=== PATIENT | male | born 1985 | race Caucasian/White ===

== ENCOUNTER 2017-07-02 21:35 | Inpatient (IN) | payer MEDICARE, MEDICAID ==
[~2017-07-02] VITALS: Ht 170.2 cm; Wt 62.7 kg
[~2017-07-02 21:35] MED LIST: CHOL20004 PO; QUET100T PO; QUET50TA PO
[2017-07-02 22:12] LABS: BASOPHILS % (AUTO) 0.5 % (0.0-2.0); EOSINOPHILS % (AUTO) 1.9 % (1.0-6.0); HEMATOCRIT 44.6 % (41-53); HEMOGLOBIN 15.2 g/dL (13.5-17.5); LYMPHOCYTES # (AUTO) 3.2 K/uL (1.0-4.8); LYMPHOCYTES % (AUTO) 23.1 % (22.0-44.0); MEAN CORPUSCULAR HEMOGLOBIN 30.6 pg (26.0-34.0); MEAN CORPUSCULAR HGB CONC 34.1 G/dL (31.0-37.0); MEAN CORPUSCULAR VOLUME 90 fL (80-100); MONOCYTES # (AUTO) 0.9 K/uL (0.1-1.0); MONOCYTES % (AUTO) 6.7 % (2.0-9.0); NEUTROPHILS # (AUTO) 9.3 K/uL (1.8-7.7); NEUTROPHILS % (AUTO) 67.8 % (40.0-70.0); PLATELET COUNT (AUTO) 337 K/uL (150-450); RED BLOOD CELL COUNT(AUTO) 4.97 MIL/uL (4.50-5.90); RED CELL DISTRIBUTION WIDTH 12.9 % (11.5-14.5); WHITE BLOOD COUNT (AUTO) 13.7 K/uL (4.5-11.0)
[2017-07-02 22:22] LABS: ANION GAP 3 mmol/L (8-16); CARBON DIOXIDE 30 mmol/L (22-29); CHLORIDE 105 mmol/L (98-107); CREATININE 0.81 mg/dL (0.60-1.30); POTASSIUM 4.3 mmol/L (3.5-5.1); SODIUM SERUM 138 mmol/L (136-145); UREA NITROGEN, BLOOD 13 mg/dL (7-18)
[2017-07-02 22:23] LABS: CALCIUM, TOTAL 9.2 mg/dL (8.8-10.5); GLOMERULAR FILTR. RATE CALC > 60 mL/min (>60)
[2017-07-02 22:28] LABS: ALANINE AMINOTRANSFERASE 19 U/L (12-78); ALBUMIN 3.6 g/dL (3.4-5.0); ASPARTATE AMINOTRANSFERASE 14 U/L (15-37); BILIRUBIN,TOTAL 0.4 mg/dL (0.1-1.0)
[2017-07-02] MEDS ORDERED: LORazepam 2 MG TABLET PO ONE (22:30)
[2017-07-02] MEDS ORDERED: SULFAMETHOX/TRIMETH DS 800-160 MG/TABLET PO ONE (23:00)
[2017-07-02] MEDS ORDERED: HYDROCODONE/ACETAMINOPHEN 5-325 MG TABLET PO ONE (23:00)
[2017-07-02] MEDS ORDERED: LIDOCAINE HCL 1% 10 ML VIAL INJ ONE (23:00)
[2017-07-03 08:31] VITALS: BP 122/81
[2017-07-03] MEDS: FLUoxetine HCL 20 MG CAPSULE PO SCH (09:22)
[2017-07-03] MEDS: QUEtiapine FUMARATE 25 MG TABLET PO SCH (09:23)
[2017-07-03] MEDS ORDERED: MAG HYDROX/AL HYDROX/SIMETH ES 30 ML SUSPENSION UDCUP PO PRN (11:00)
[2017-07-03] MEDS ORDERED: MAGNESIUM HYDROXIDE SUSPENSION 30 ML UDCUP PO PRN (11:00)
[2017-07-03] MEDS ORDERED: BACITRACIN 28.4 GM OINTMENT TP PRN (11:00)
[2017-07-03] MEDS ORDERED: ONDANSETRON HCL 4 MG TABLET PO PRN (11:00)
[2017-07-03] MEDS ORDERED: ALBUTEROL SULFATE HFA 90 MCG/PUFF 8 GM INHALER IH PRN (11:00)
[2017-07-03] MEDS ORDERED: IBUPROFEN 600 MG TABLET PO PRN (11:00)
[2017-07-03] MEDS ORDERED: LOPERAMIDE HCL 2 MG CAPSULE PO PRN (11:00)
[2017-07-03] MEDS ORDERED: ACETAMINOPHEN 325 MG TABLET PO PRN (11:00)
[2017-07-03] MEDS ORDERED: PETROLATUM,WHITE 71 GM JELLY TP PRN (11:00)
[2017-07-03] MEDS ORDERED: CloNIDine HCL 0.1 MG TABLET PO PRN (11:00)
[2017-07-03] MEDS ORDERED: BENZOCAINE/MENTHOL LOZENGE [8 LOZENGES/PACKET] MM PRN (11:15)
[2017-07-03] MEDS: SULFAMETHOX/TRIMETH DS 800-160 MG/TABLET PO SCH (17:23)
[2017-07-03] MEDS: QUEtiapine FUMARATE 100 MG TABLET PO SCH (20:30)
[2017-07-04] MEDS: QUEtiapine FUMARATE 25 MG TABLET PO SCH (09:20)
[2017-07-04] MEDS: SULFAMETHOX/TRIMETH DS 800-160 MG/TABLET PO SCH ×2 (09:20→17:01)
[2017-07-04] MEDS: FLUoxetine HCL 20 MG CAPSULE PO SCH (09:20)
[2017-07-04] MEDS: CHOLECALCIFEROL (VIT D3) 1,000 UNITS TABLET PO SCH (09:20)
[2017-07-04] MEDS: NICOTINE 21 MG/24 HOUR PATCH TD SCH (09:22)
[2017-07-04 09:55] VITALS: BP 146/74
[2017-07-04 17:38] VITALS: BP 116/89
[2017-07-04] MEDS: QUEtiapine FUMARATE 100 MG TABLET PO SCH (20:45)
[2017-07-05] MEDS: MULTIVITAMINS WITH MINERALS, THERAPEUTIC TABLET PO SCH (09:26)
[2017-07-05] MEDS: FLUoxetine HCL 20 MG CAPSULE PO SCH (09:26)
[2017-07-05] MEDS: CHOLECALCIFEROL (VIT D3) 1,000 UNITS TABLET PO SCH (09:26)
[2017-07-05] MEDS: SULFAMETHOX/TRIMETH DS 800-160 MG/TABLET PO SCH ×2 (09:26→16:25)
[2017-07-05] MEDS: QUEtiapine FUMARATE 25 MG TABLET PO SCH (09:26)
[2017-07-05] MEDS: NICOTINE 21 MG/24 HOUR PATCH TD SCH (09:28)
[2017-07-05 09:48] VITALS: BP 101/65
[2017-07-05] MEDS: MUPIROCIN CALCIUM 2% 22 GM OINTMENT TP SCH (15:00)
[2017-07-05 16:24] VITALS: BP 119/70
[2017-07-05] MEDS: QUEtiapine FUMARATE 100 MG TABLET PO SCH (21:19)
[2017-07-06 02:52] VITALS: BP 129/65
[2017-07-06] MEDS: ZOLPIDEM TARTRATE 10 MG TABLET PO PRN (02:52)
[2017-07-06] MEDS: MUPIROCIN CALCIUM 2% 22 GM OINTMENT TP SCH (10:02)
[2017-07-06] MEDS: SULFAMETHOX/TRIMETH DS 800-160 MG/TABLET PO SCH ×2 (10:08→17:26)
[2017-07-06] MEDS: NICOTINE 21 MG/24 HOUR PATCH TD SCH (10:08)
[2017-07-06] MEDS: CHOLECALCIFEROL (VIT D3) 1,000 UNITS TABLET PO SCH (10:09)
[2017-07-06] MEDS: MULTIVITAMINS WITH MINERALS, THERAPEUTIC TABLET PO SCH (10:09)
[2017-07-06] MEDS: QUEtiapine FUMARATE 25 MG TABLET PO SCH (10:09)
[2017-07-06] MEDS: FLUoxetine HCL 20 MG CAPSULE PO SCH (10:09)
[2017-07-06] MEDS: LORazepam 2 MG TABLET PO PRN (10:11)
[2017-07-06] MEDS: QUEtiapine FUMARATE 100 MG TABLET PO PRN (10:11)
[2017-07-06 14:12] VITALS: BP 137/89
[2017-07-06 16:31] VITALS: BP 126/73
[2017-07-06] MEDS: QUEtiapine FUMARATE 100 MG TABLET PO SCH (20:21)
[2017-07-07 02:58] VITALS: BP 135/72
[2017-07-07 08:00] VITALS: BP 113/75
[2017-07-07] MEDS: QUEtiapine FUMARATE 25 MG TABLET PO SCH (08:12)
[2017-07-07] MEDS: CHOLECALCIFEROL (VIT D3) 1,000 UNITS TABLET PO SCH (08:12)
[2017-07-07] MEDS: FLUoxetine HCL 20 MG CAPSULE PO SCH (08:12)
[2017-07-07] MEDS: SULFAMETHOX/TRIMETH DS 800-160 MG/TABLET PO SCH ×2 (08:12→16:33)
[2017-07-07] MEDS: MUPIROCIN CALCIUM 2% 22 GM OINTMENT TP SCH (08:13)
[2017-07-07] MEDS: NICOTINE 21 MG/24 HOUR PATCH TD SCH (08:13)
[2017-07-07] MEDS: MULTIVITAMINS WITH MINERALS, THERAPEUTIC TABLET PO SCH (08:13)
[2017-07-07] MEDS: LORazepam 2 MG TABLET PO PRN (14:31)
[2017-07-07] MEDS: QUEtiapine FUMARATE 100 MG TABLET PO PRN (14:32)
[2017-07-07 20:09] VITALS: BP 119/81
[2017-07-07] MEDS: QUEtiapine FUMARATE 100 MG TABLET PO SCH (21:18)
[2017-07-08 08:00] VITALS: BP 130/77
[2017-07-08] MEDS: FLUoxetine HCL 20 MG CAPSULE PO SCH (08:13)
[2017-07-08] MEDS: SULFAMETHOX/TRIMETH DS 800-160 MG/TABLET PO SCH ×2 (08:13→16:20)
[2017-07-08] MEDS: QUEtiapine FUMARATE 25 MG TABLET PO SCH (08:13)
[2017-07-08] MEDS: CHOLECALCIFEROL (VIT D3) 1,000 UNITS TABLET PO SCH (08:13)
[2017-07-08] MEDS: MULTIVITAMINS WITH MINERALS, THERAPEUTIC TABLET PO SCH (08:13)
[2017-07-08] MEDS: MUPIROCIN CALCIUM 2% 22 GM OINTMENT TP SCH (08:14)
[2017-07-08] MEDS: NICOTINE 21 MG/24 HOUR PATCH TD SCH (08:14)
[2017-07-08 17:18] VITALS: BP 105/81
[2017-07-08] MEDS: QUEtiapine FUMARATE 100 MG TABLET PO SCH (21:19)
[2017-07-08] MEDS: ZOLPIDEM TARTRATE 10 MG TABLET PO PRN (22:45)
[2017-07-09 08:05] VITALS: BP 130/77
[2017-07-09] MEDS: QUEtiapine FUMARATE 25 MG TABLET PO SCH (08:29)
[2017-07-09] MEDS: MULTIVITAMINS WITH MINERALS, THERAPEUTIC TABLET PO SCH (08:29)
[2017-07-09] MEDS: SULFAMETHOX/TRIMETH DS 800-160 MG/TABLET PO SCH ×2 (08:29→16:29)
[2017-07-09] MEDS: FLUoxetine HCL 20 MG CAPSULE PO SCH (08:29)
[2017-07-09] MEDS: CHOLECALCIFEROL (VIT D3) 1,000 UNITS TABLET PO SCH (08:29)
[2017-07-09] MEDS: MUPIROCIN CALCIUM 2% 22 GM OINTMENT TP SCH (08:30)
[2017-07-09] MEDS: NICOTINE 21 MG/24 HOUR PATCH TD SCH (08:30)
[2017-07-09] MEDS ORDERED: FLUO-191 PO (16:55)
[2017-07-09] MEDS ORDERED: QUET25TA PO (16:55)
[2017-07-09] MEDS ORDERED: QUET100T PO (16:56)
[2017-07-09] MEDS ORDERED: VITAD1000 PO (17:01)
[2017-07-09] MEDS ORDERED: BACTDSB PO (17:01)
[2017-07-09] MEDS ORDERED: MULT-248 PO (17:05)
[2017-07-09] MEDS ORDERED: MUPI1OIN4 TP (17:07)
== END 2017-07-09 16:45 | disposition home or self-care (01) | DRG 885 ==
LOC: EMS 21:38 → 3EI 23:48
PROVIDERS: ADMIT Psychiatry & Neurology Child & Adolescent Psychiatry; ATTEND Psychiatry & Neurology Child & Adolescent Psychiatry
PROC: 0X950ZZ Drainage of Left Axilla, Open Approach (ICD-10-PCS; principal; 2017-07-02)
DX: F31.5 Bipolar disorder, current episode depressed, severe, with psychotic features (principal); R45.851 Suicidal ideations; L02.412 Cutaneous abscess of left axilla; D72.829 Elevated white blood cell count, unspecified; E55.9 Vitamin D deficiency, unspecified; F11.10 Opioid abuse, uncomplicated; F12.10 Cannabis abuse, uncomplicated; F15.10 Other stimulant abuse, uncomplicated; F17.210 Nicotine dependence, cigarettes, uncomplicated; Z71.51 Drug abuse counseling and surveillance of drug abuser; F41.9 Anxiety disorder, unspecified; G47.00 Insomnia, unspecified; Z59.0 Homelessness; Z79.899 Other long term (current) drug therapy; Z81.8 Family history of other mental and behavioral disorders; Z88.0 Allergy status to penicillin; Z88.8 Allergy status to other drugs, medicaments and biological substances; Z88.1 Allergy status to other antibiotic agents; Z71.6 Tobacco abuse counseling
CPT/HCPCS: 10060; 99285; 99406; G0480; J3490

== ENCOUNTER 2017-08-30 15:06 | Inpatient (IN) | payer MEDICARE, MEDICAID ==
[~2017-08-30] VITALS: Ht 170.2 cm; Wt 66.2 kg
[~2017-08-30 15:06] MED LIST changes: +BACTDSB PO; -CHOL20004 PO; +FLUO-191 PO; +MULT-248 PO; +MUPI1OIN4 TP; +QUET25TA PO; -QUET50TA PO; +VITAD1000 PO
[2017-08-30 17:00] VITALS: BP 113/60
[2017-08-30 17:44] VITALS: BP 110/73
[2017-08-30] MEDS ORDERED: ZOLPIDEM TARTRATE 10 MG TABLET PO PRN (17:45)
[2017-08-30] MEDS ORDERED: INFLUENZA VIRUS VACCINE QVS 2017-18 (3YR+)/PF 60 MCG/0.5 ML SYRINGE IM ONE (19:00)
[2017-08-31 01:33] VITALS: BP 118/64
[2017-08-31 08:24] VITALS: BP 100/61
[2017-08-31 08:32] LABS: BASOPHILS # (AUTO) 0.03 K/uL (0.00-0.20); BASOPHILS % (AUTO) 0.4 % (0.0-2.0); EOSINOPHILS # (AUTO) 0.16 K/uL (0.00-0.70); EOSINOPHILS % (AUTO) 1.69 % (1.0-6.0); HEMATOCRIT 48.4 % (41-53); HEMOGLOBIN 16.1 g/dL (13.5-17.5); LYMPHOCYTES # (AUTO) 1.7 K/uL (1.0-4.8); LYMPHOCYTES % (AUTO) 17.9 % (22.0-44.0); MEAN CORPUSCULAR HEMOGLOBIN 30.2 pg (26.0-34.0); MEAN CORPUSCULAR HGB CONC 33.2 G/dL (31.0-37.0); MEAN CORPUSCULAR VOLUME 91 fL (80-100); MONOCYTES # (AUTO) 0.4 K/uL (0.1-1.0); MONOCYTES % (AUTO) 4.1 % (2.0-9.0); NEUTROPHILS # (AUTO) 7.3 K/uL (1.8-7.7); NEUTROPHILS % (AUTO) 75.9 % (40.0-70.0); PLATELET COUNT (AUTO) 333 K/uL (150-450); RED BLOOD CELL COUNT(AUTO) 5.32 MIL/uL (4.50-5.90); RED CELL DISTRIBUTION WIDTH 13.3 % (11.5-14.5)
[2017-08-31 09:03] LABS: ALANINE AMINOTRANSFERASE 28 U/L (12-78); ALBUMIN 3.7 g/dL (3.4-5.0); ALKALINE PHOSPHATASE 49 U/L (46-116); ANION GAP 10 mmol/L (8-16); ASPARTATE AMINOTRANSFERASE 14 U/L (15-37); BILIRUBIN,TOTAL 0.5 mg/dL (0.1-1.0); CARBON DIOXIDE 28 mmol/L (22-29); CHLORIDE 103 mmol/L (98-107); CHOL/HDL RATIO 2.2 (4.2-7.3); CHOLESTEROL 143 mg/dL (131-200); CREATININE 0.84 mg/dL (0.60-1.30); FREE T4 (FREE THYROXINE) 1.12 ng/dL (0.76-1.46); GLOMERULAR FILTR. RATE CALC > 60 mL/min (>60); GLUCOSE,RANDOM 85 mg/dL (70-110); HDL CHOLESTEROL 66 mg/dL (40-60); LDL CHOL (CALC.) 65 mg/dL (0-130); POTASSIUM 4.6 mmol/L (3.5-5.1); SODIUM SERUM 141 mmol/L (136-145); THYROID STIMULATING HORMONE 0.21 uIU/mL (0.36-3.74); TOTAL PROTEIN, SERUM 7.5 g/dL (6.4-8.2); TRIGLYCERIDES 61 mg/dL (15-150); UREA NITROGEN, BLOOD 17 mg/dL (7-18)
[2017-08-31] MEDS ORDERED: MAG HYDROX/AL HYDROX/SIMETH ES 30 ML SUSPENSION UDCUP PO PRN (12:30)
[2017-08-31] MEDS ORDERED: IBUPROFEN 600 MG TABLET PO PRN (12:30)
[2017-08-31] MEDS ORDERED: ACETAMINOPHEN 325 MG TABLET PO PRN (12:30)
[2017-08-31] MEDS ORDERED: PETROLATUM,WHITE 71 GM JELLY TP PRN (12:30)
[2017-08-31] MEDS ORDERED: LOPERAMIDE HCL 2 MG CAPSULE PO PRN (12:30)
[2017-08-31] MEDS ORDERED: ALBUTEROL SULFATE HFA 90 MCG/PUFF 8 GM INHALER IH PRN (12:30)
[2017-08-31] MEDS ORDERED: MAGNESIUM HYDROXIDE SUSPENSION 30 ML UDCUP PO PRN (12:30)
[2017-08-31] MEDS ORDERED: BACITRACIN 28.4 GM OINTMENT TP PRN (12:30)
[2017-08-31] MEDS ORDERED: BENZOCAINE/MENTHOL LOZENGE MM PRN (12:30)
[2017-08-31] MEDS ORDERED: ONDANSETRON HCL 4 MG TABLET PO PRN (12:30)
[2017-08-31] MEDS ORDERED: CloNIDine HCL 0.1 MG TABLET PO PRN (12:30)
[2017-08-31] MEDS: NICOTINE 21 MG/24 HOUR PATCH TD SCH (12:53)
[2017-08-31 16:18] VITALS: BP 103/60
[2017-09-01 02:15] VITALS: BP 111/64
[2017-09-01] MEDS: NICOTINE 21 MG/24 HOUR PATCH TD SCH (08:55)
[2017-09-01 09:05] VITALS: BP 103/58
[2017-09-01 16:27] VITALS: BP 114/62
[2017-09-01] MEDS: QUEtiapine FUMARATE 100 MG TABLET PO SCH (20:39)
[2017-09-02 05:03] VITALS: BP 113/73
[2017-09-02 08:00] VITALS: BP 104/65
[2017-09-02] MEDS: NICOTINE 21 MG/24 HOUR PATCH TD SCH (08:38)
[2017-09-02 16:24] VITALS: BP 110/68
[2017-09-02] MEDS: QUEtiapine FUMARATE 100 MG TABLET PO SCH (20:30)
[2017-09-03 06:58] VITALS: BP 101/61
[2017-09-03] MEDS: NICOTINE 21 MG/24 HOUR PATCH TD SCH (08:41)
[2017-09-03 08:47] VITALS: BP 105/62
[2017-09-03 16:07] VITALS: BP 127/83
[2017-09-03 16:45] LABS: HIV 1-2 SCREEN 4TH GEN W/RFLX Non Reactive (Non Reactive)
[2017-09-03] MEDS: LORazepam 2 MG TABLET PO PRN (18:10)
[2017-09-03] MEDS: QUEtiapine FUMARATE 100 MG TABLET PO SCH (20:38)
[2017-09-04 06:49] VITALS: BP 101/78
[2017-09-04 08:24] VITALS: BP 105/60
[2017-09-04] MEDS: NICOTINE 21 MG/24 HOUR PATCH TD SCH (08:53)
[2017-09-04] MEDS: LORazepam 2 MG TABLET PO PRN ×2 (11:49→16:02)
[2017-09-04 16:00] VITALS: BP 107/79
[2017-09-04] MEDS: QUEtiapine FUMARATE 100 MG TABLET PO SCH (20:05)
[2017-09-05 01:51] VITALS: BP 101/60
[2017-09-05 08:39] VITALS: BP 118/59
[2017-09-05 09:00] VITALS: BP 121/67
[2017-09-05] MEDS: NICOTINE 21 MG/24 HOUR PATCH TD SCH (09:01)
[2017-09-05] MEDS: LORazepam 2 MG TABLET PO PRN ×3 (09:01→18:46)
[2017-09-05 16:15] VITALS: BP 129/67
[2017-09-05] MEDS: QUEtiapine FUMARATE 100 MG TABLET PO PRN (18:46)
[2017-09-05] MEDS: QUEtiapine FUMARATE 100 MG TABLET PO SCH (21:08)
[2017-09-06] VITALS: BP 120/73
[2017-09-06] MEDS: LORazepam 2 MG TABLET PO PRN ×3 (05:44→15:39)
[2017-09-06] MEDS: NICOTINE 21 MG/24 HOUR PATCH TD SCH ×2 (08:18→10:42)
[2017-09-06 10:15] VITALS: BP 114/72
[2017-09-06 16:30] VITALS: BP 121/69
[2017-09-06] MEDS: QUEtiapine FUMARATE 100 MG TABLET PO PRN (17:53)
[2017-09-06] MEDS ORDERED: QUEtiapine FUMARATE 100 MG TABLET PO SCH (21:00)
[2017-09-07 00:25] VITALS: BP 111/68
[2017-09-07 08:29] VITALS: BP 113/73
[2017-09-07] MEDS: NICOTINE 21 MG/24 HOUR PATCH TD SCH (09:00)
== END 2017-09-07 13:25 | disposition home or self-care (01) | DRG 885 ==
LOC: B2X 18:20
PROVIDERS: ADMIT Psychiatry & Neurology Child & Adolescent Psychiatry; ATTEND Psychiatry & Neurology Child & Adolescent Psychiatry
PROC: 3E0234Z Introduction of Serum, Toxoid and Vaccine into Muscle, Percutaneous Approach (ICD-10-PCS; principal; 2017-08-31)
DX: F25.0 Schizoaffective disorder, bipolar type (principal); R45.851 Suicidal ideations; Z59.0 Homelessness; F12.10 Cannabis abuse, uncomplicated; F15.10 Other stimulant abuse, uncomplicated; F17.200 Nicotine dependence, unspecified, uncomplicated; G47.00 Insomnia, unspecified; Z81.8 Family history of other mental and behavioral disorders; Z88.0 Allergy status to penicillin; Z88.8 Allergy status to other drugs, medicaments and biological substances; Z23 Encounter for immunization
CPT/HCPCS: 80074; 84439; 84443; 87389; 90471

== ENCOUNTER 2018-04-01 09:37 | Inpatient (IN) | payer MEDICARE, MEDICAID ==
[~2018-04-01] VITALS: Ht 167.6 cm; Wt 68.0 kg
[~2018-04-01 09:37] MED LIST changes: -BACTDSB PO; -FLUO-191 PO; -MULT-248 PO; -MUPI1OIN4 TP; -QUET25TA PO; -VITAD1000 PO
[2018-04-01] MEDS ORDERED: HALOPERIDOL 5 MG TABLET PO PRN (11:30)
[2018-04-01] MEDS ORDERED: ZOLPIDEM TARTRATE 10 MG TABLET PO PRN (11:30)
[2018-04-01 11:33] VITALS: BP 104/59
[2018-04-01] MEDS ORDERED: OXCA300T PO (11:46)
[2018-04-01] MEDS ORDERED: QUET300T2 PO (11:46)
[2018-04-01] MEDS ORDERED: LOPERAMIDE HCL 2 MG CAPSULE PO PRN (12:45)
[2018-04-01] MEDS ORDERED: MAGNESIUM HYDROXIDE SUSPENSION 30 ML UDCUP PO PRN (12:45)
[2018-04-01] MEDS ORDERED: CloNIDine HCL 0.1 MG TABLET PO PRN (12:45)
[2018-04-01] MEDS ORDERED: DOCUSATE SODIUM 100 MG CAPSULE PO PRN (12:45)
[2018-04-01] MEDS ORDERED: ALBUTEROL SULFATE HFA 90 MCG/PUFF 8 GM INHALER IH PRN (12:45)
[2018-04-01] MEDS ORDERED: IBUPROFEN 400 MG TABLET PO PRN (12:45)
[2018-04-01] MEDS ORDERED: MAG HYDROX/AL HYDROX/SIMETH ES 30 ML SUSPENSION UDCUP PO PRN (12:45)
[2018-04-01] MEDS ORDERED: GuaiFENesin/D-METHORPHAN [SUGAR-FREE] 200-20MG/10 ML SYRUP UDCUP PO PRN (12:45)
[2018-04-01] MEDS ORDERED: PETROLATUM,WHITE 71 GM JELLY TP PRN (12:45)
[2018-04-01] MEDS ORDERED: ONDANSETRON HCL 4 MG TABLET PO PRN (12:45)
[2018-04-01] MEDS ORDERED: NICOTINE 14 MG/24 HOUR PATCH TD PRN (12:45)
[2018-04-01] MEDS ORDERED: ACETAMINOPHEN 325 MG TABLET PO PRN (12:45)
[2018-04-01 16:13] VITALS: BP 105/65
[2018-04-01 16:15] VITALS: BP 105/65
[2018-04-01] MEDS: LORazepam 2 MG TABLET PO PRN (23:07)
[2018-04-02 06:25] VITALS: BP 108/76
[2018-04-02 07:52] LABS: BASOPHILS % (AUTO) 0.4 % (0.0-2.0); EOSINOPHILS % (AUTO) 6.4 % (1.0-6.0); HEMATOCRIT 46.4 % (41-53); HEMOGLOBIN 16.1 g/dL (13.5-17.5); LYMPHOCYTES # (AUTO) 2.3 K/uL (1.0-4.8); LYMPHOCYTES % (AUTO) 29.4 % (22.0-44.0); MEAN CORPUSCULAR HEMOGLOBIN 31.3 pg (26.0-34.0); MEAN CORPUSCULAR HGB CONC 34.7 G/dL (31.0-37.0); MEAN CORPUSCULAR VOLUME 90 fL (80-100); MONOCYTES # (AUTO) 0.5 K/uL (0.1-1.0); MONOCYTES % (AUTO) 6.9 % (2.0-9.0); NEUTROPHILS # (AUTO) 4.4 K/uL (1.8-7.7); NEUTROPHILS % (AUTO) 56.9 % (40.0-70.0); PLATELET COUNT (AUTO) 314 K/uL (150-450); RED BLOOD CELL COUNT(AUTO) 5.14 MIL/uL (4.50-5.90); RED CELL DISTRIBUTION WIDTH 13.7 % (11.5-14.5)
[2018-04-02 08:14] LABS: HEMOGLOBIN A1C 5.2 % (4.5-6.2)
[2018-04-02 08:41] VITALS: BP 118/61
[2018-04-02 08:45] LABS: ALANINE AMINOTRANSFERASE 25 U/L (12-78); ALBUMIN 3.5 g/dL (3.4-5.0); ALKALINE PHOSPHATASE 46 U/L (46-116); ANION GAP 7 mmol/L (8-16); ASPARTATE AMINOTRANSFERASE 15 U/L (15-37); BILIRUBIN,TOTAL 0.7 mg/dL (0.1-1.0); CALCIUM, TOTAL 8.6 mg/dL (8.8-10.5); CARBON DIOXIDE 26 mmol/L (22-29); CHLORIDE 105 mmol/L (98-107); CHOL/HDL RATIO 2.8 (4.2-7.3); CHOLESTEROL 135 mg/dL (131-200); FREE T4 (FREE THYROXINE) 0.95 ng/dL (0.76-1.46); GLOMERULAR FILTR. RATE CALC > 60 mL/min (>60); GLUCOSE,RANDOM 78 mg/dL (70-110); HDL CHOLESTEROL 49 mg/dL (40-60); LDL CHOL (CALC.) 74 mg/dL (0-130); POTASSIUM 4.7 mmol/L (3.5-5.1); SODIUM SERUM 138 mmol/L (136-145); THYROID STIMULATING HORMONE 1.01 uIU/mL (0.36-3.74); TOTAL PROTEIN, SERUM 6.4 g/dL (6.4-8.2); TRIGLYCERIDES 61 mg/dL (15-150); UREA NITROGEN, BLOOD 12 mg/dL (7-18)
[2018-04-02] MEDS: NICOTINE 14 MG/24 HOUR PATCH TD SCH (09:33)
[2018-04-02 16:12] VITALS: BP 112/66
[2018-04-02] MEDS: LORazepam 2 MG TABLET PO PRN (16:27)
[2018-04-02] MEDS: NYSTATIN 15 GM POWDER BOTTLE TP SCH (16:28)
[2018-04-02] MEDS: QUEtiapine FUMARATE 300 MG TABLET PO SCH (20:05)
[2018-04-03 01:57] VITALS: BP 120/80
[2018-04-03 08:22] VITALS: BP 105/66
[2018-04-03] MEDS: NYSTATIN 15 GM POWDER BOTTLE TP SCH ×2 (09:59→16:39)
[2018-04-03] MEDS: NICOTINE 14 MG/24 HOUR PATCH TD SCH (09:59)
[2018-04-03] MEDS: LORazepam 2 MG TABLET PO PRN ×3 (12:38→21:19)
[2018-04-03 18:07] VITALS: BP 106/62
[2018-04-03] MEDS: QUEtiapine FUMARATE 300 MG TABLET PO SCH (21:12)
[2018-04-03] MEDS: CHOLECALCIFEROL (VIT D3) 400 UNITS TABLET PO SCH (21:12)
[2018-04-04 00:45] VITALS: BP 118/60
[2018-04-04] MEDS: LORazepam 2 MG TABLET PO PRN ×4 (01:17→20:12)
[2018-04-04 08:27] VITALS: BP 104/60
[2018-04-04] MEDS: CHOLECALCIFEROL (VIT D3) 400 UNITS TABLET PO SCH ×2 (08:31→16:02)
[2018-04-04] MEDS: NICOTINE 14 MG/24 HOUR PATCH TD SCH (08:31)
[2018-04-04] MEDS: NYSTATIN 15 GM POWDER BOTTLE TP SCH ×2 (08:32→16:02)
[2018-04-04 11:55] VITALS: BP 110/64
[2018-04-04 16:12] VITALS: BP 118/74
[2018-04-04] MEDS: QUEtiapine FUMARATE 300 MG TABLET PO SCH (20:12)
[2018-04-05 04:03] VITALS: BP 105/65
[2018-04-05 08:49] VITALS: BP 112/60
[2018-04-05] MEDS: NICOTINE 14 MG/24 HOUR PATCH TD SCH (09:00)
[2018-04-05] MEDS: CHOLECALCIFEROL (VIT D3) 400 UNITS TABLET PO SCH ×2 (09:12→16:06)
[2018-04-05] MEDS: NYSTATIN 15 GM POWDER BOTTLE TP SCH ×2 (09:13→16:06)
[2018-04-05] MEDS: LORazepam 2 MG TABLET PO PRN ×4 (10:51→23:56)
[2018-04-05 16:17] VITALS: BP 115/68
[2018-04-05] MEDS: QUEtiapine FUMARATE 300 MG TABLET PO SCH (20:16)
[2018-04-06 02:40] VITALS: BP 111/72
[2018-04-06 08:30] VITALS: BP 103/67
[2018-04-06] MEDS: CHOLECALCIFEROL (VIT D3) 400 UNITS TABLET PO SCH ×2 (08:49→16:36)
[2018-04-06] MEDS: NICOTINE 14 MG/24 HOUR PATCH TD SCH (08:50)
[2018-04-06] MEDS: NYSTATIN 15 GM POWDER BOTTLE TP SCH ×2 (08:50→16:40)
[2018-04-06] MEDS ORDERED: QUET300T18 PO (12:16)
[2018-04-06] MEDS ORDERED: VITAD400 PO (12:42)
[2018-04-06] MEDS ORDERED: NYST15PO3 TP (12:42)
== END 2018-04-06 17:00 | disposition home or self-care (01) | DRG 885 ==
LOC: B2S 11:22
DX: F31.4 Bipolar disorder, current episode depressed, severe, without psychotic features (principal); R45.851 Suicidal ideations; E55.9 Vitamin D deficiency, unspecified; F12.10 Cannabis abuse, uncomplicated; F15.10 Other stimulant abuse, uncomplicated; F17.200 Nicotine dependence, unspecified, uncomplicated; F41.9 Anxiety disorder, unspecified; G47.00 Insomnia, unspecified; F60.2 Antisocial personality disorder; Z59.0 Homelessness; Z81.8 Family history of other mental and behavioral disorders; Z71.6 Tobacco abuse counseling; Z71.51 Drug abuse counseling and surveillance of drug abuser; Z91.5 Personal history of self-harm; Z88.0 Allergy status to penicillin; Z88.8 Allergy status to other drugs, medicaments and biological substances; Z91.14 Patient's other noncompliance with medication regimen
CPT/HCPCS: 82306; 83036; 84439; 84443

== ENCOUNTER 2018-06-11 00:50 | Inpatient (IN) | payer MEDICARE, MEDICAID ==
[~2018-06-11] VITALS: Ht 167.6 cm; Wt 67.6 kg
[~2018-06-11 00:50] MED LIST changes: +NYST15PO3 TP; -QUET100T PO; +QUET300T18 PO; +QUET300T2 PO; +VITAD400 PO
[2018-06-11 06:12] VITALS: BP 105/73
[2018-06-11] MEDS ORDERED: DOCUSATE SODIUM 100 MG CAPSULE PO PRN (06:30)
[2018-06-11] MEDS ORDERED: ONDANSETRON HCL 4 MG TABLET PO PRN (06:30)
[2018-06-11] MEDS ORDERED: IBUPROFEN 400 MG TABLET PO PRN (06:30)
[2018-06-11] MEDS ORDERED: MAGNESIUM HYDROXIDE SUSPENSION 30 ML UDCUP PO PRN (06:30)
[2018-06-11] MEDS ORDERED: ALBUTEROL SULFATE HFA 90 MCG/PUFF 8 GM INHALER IH PRN (06:30)
[2018-06-11] MEDS ORDERED: CloNIDine HCL 0.1 MG TABLET PO PRN (06:30)
[2018-06-11] MEDS ORDERED: ACETAMINOPHEN 325 MG TABLET PO PRN (06:30)
[2018-06-11] MEDS ORDERED: GuaiFENesin/D-METHORPHAN [SUGAR-FREE] 200-20MG/10 ML SYRUP UDCUP PO PRN (06:30)
[2018-06-11] MEDS ORDERED: PETROLATUM,WHITE 71 GM JELLY TP PRN (06:30)
[2018-06-11] MEDS ORDERED: MAG HYDROX/AL HYDROX/SIMETH ES 30 ML SUSPENSION UDCUP PO PRN (06:30)
[2018-06-11] MEDS ORDERED: NICOTINE 14 MG/24 HOUR PATCH TD PRN (06:30)
[2018-06-11] MEDS ORDERED: LOPERAMIDE HCL 2 MG CAPSULE PO PRN (06:30)
[2018-06-11] MEDS: LORazepam 2 MG TABLET PO PRN (07:15)
[2018-06-11 07:36] LABS: AMPHET/METH SCREEN,URINE NEGATIVE (NEGATIVE); BARBITURATE SCREEN, URINE NEGATIVE (NEGATIVE); BENZODIAZEPINES SCREEN,URINE NEGATIVE (NEGATIVE); CANNABINOID SCREEN,URINE POSITIVE (NEGATIVE); COCAINE SCREEN,URINE NEGATIVE (NEGATIVE); METHADONE SCREEN, URINE NEGATIVE (NEGATIVE); OPIATE SCREEN,URINE NEGATIVE (NEGATIVE); PHENCYCLIDINE SCREEN,URINE NEGATIVE (NEGATIVE)
[2018-06-11 08:21] VITALS: BP 122/73
[2018-06-11 08:29] LABS: APPEARANCE,URINE CLEAR (CLEAR); BILIRUBIN,URINE NEGATIVE (NEGATIVE); GLUCOSE, URINE (UA) NEGATIVE (NEGATIVE); KETONES,URINE NEGATIVE (NEGATIVE); LEUKOCYTE ESTERASE ,URINE NEGATIVE (NEGATIVE); NITRATE,URINE NEGATIVE (NEGATIVE); OCCULT BLOOD,URINE NEGATIVE (NEGATIVE); PH,URINE 6.5 (5.0-8.0); PROTEIN,URINE NEGATIVE (NEGATIVE); UROBILINOGEN,URINE 0.2 mg/dL (<=1.0)
[2018-06-11] MEDS: QUEtiapine FUMARATE 100 MG TABLET PO SCH (12:40)
[2018-06-11 16:05] VITALS: BP 127/79
[2018-06-11] MEDS: QUEtiapine FUMARATE 200 MG TABLET PO SCH (20:05)
[2018-06-12] VITALS: BP 122/84
[2018-06-12 01:52] VITALS: BP 108/73
[2018-06-12] MEDS: LORazepam 2 MG TABLET PO PRN ×2 (01:53→20:33)
[2018-06-12] MEDS ORDERED: QUET300T2 PO (05:23)
[2018-06-12] MEDS ORDERED: OXCA300T29 PO (05:23)
[2018-06-12 07:12] LABS: BASOPHILS % (AUTO) 0.5 % (0.0-2.0); EOSINOPHILS % (AUTO) 2.1 % (1.0-6.0); HEMATOCRIT 43.9 % (41-53); HEMOGLOBIN 15.4 g/dL (13.5-17.5); LYMPHOCYTES # (AUTO) 2.6 K/uL (1.0-4.8); LYMPHOCYTES % (AUTO) 38.1 % (22.0-44.0); MEAN CORPUSCULAR HEMOGLOBIN 31.8 pg (26.0-34.0); MEAN CORPUSCULAR VOLUME 91 fL (80-100); MONOCYTES # (AUTO) 0.6 K/uL (0.1-1.0); MONOCYTES % (AUTO) 8.8 % (2.0-9.0); NEUTROPHILS # (AUTO) 3.4 K/uL (1.8-7.7); NEUTROPHILS % (AUTO) 50.5 % (40.0-70.0); PLATELET COUNT (AUTO) 304 K/uL (150-450); RED BLOOD CELL COUNT(AUTO) 4.84 MIL/uL (4.50-5.90)
[2018-06-12 07:39] LABS: ALANINE AMINOTRANSFERASE 32 U/L (12-78); ALBUMIN 3.2 g/dL (3.4-5.0); ALKALINE PHOSPHATASE 46 U/L (46-116); ANION GAP 5 mmol/L (8-16); ASPARTATE AMINOTRANSFERASE 13 U/L (15-37); BILIRUBIN,TOTAL 0.3 mg/dL (0.1-1.0); CALCIUM, TOTAL 8.8 mg/dL (8.8-10.5); CARBON DIOXIDE 30 mmol/L (22-29); CHLORIDE 101 mmol/L (98-107); CHOL/HDL RATIO 2.8 (4.2-7.3); CHOLESTEROL 137 mg/dL (131-200); CREATININE 0.89 mg/dL (0.60-1.30); GLOMERULAR FILTR. RATE CALC > 60 mL/min (>60); GLUCOSE,RANDOM 89 mg/dL (70-110); HDL CHOLESTEROL 49 mg/dL (40-60); LDL CHOL (CALC.) 67 mg/dL (0-130); POTASSIUM 4.7 mmol/L (3.5-5.1); SODIUM SERUM 136 mmol/L (136-145); THYROID STIMULATING HORMONE 1.61 uIU/mL (0.36-3.74); TOTAL PROTEIN, SERUM 6.3 g/dL (6.4-8.2); TRIGLYCERIDES 103 mg/dL (15-150); UREA NITROGEN, BLOOD 17 mg/dL (7-18)
[2018-06-12] MEDS: QUEtiapine FUMARATE 100 MG TABLET PO SCH (08:02)
[2018-06-12 08:16] VITALS: BP 108/68
[2018-06-12 16:15] VITALS: BP 120/87
[2018-06-12] MEDS: QUEtiapine FUMARATE 200 MG TABLET PO SCH (20:20)
[2018-06-13 00:04] VITALS: BP 110/68
[2018-06-13] MEDS: QUEtiapine FUMARATE 100 MG TABLET PO PRN (00:19)
[2018-06-13] MEDS: QUEtiapine FUMARATE 100 MG TABLET PO SCH (08:10)
[2018-06-13 08:12] VITALS: BP 126/70
[2018-06-13 16:06] VITALS: BP 122/73
[2018-06-13] MEDS: LORazepam 2 MG TABLET PO PRN (16:15)
[2018-06-13] MEDS: QUEtiapine FUMARATE 200 MG TABLET PO SCH (20:32)
[2018-06-14 00:01] VITALS: BP 110/68
[2018-06-14] MEDS: ZOLPIDEM TARTRATE 10 MG TABLET PO PRN (00:04)
[2018-06-14 08:08] VITALS: BP 112/74
[2018-06-14] MEDS: MULTIVITAMINS WITH MINERALS, THERAPEUTIC TABLET PO SCH (08:50)
[2018-06-14] MEDS: QUEtiapine FUMARATE 100 MG TABLET PO SCH (08:50)
[2018-06-14 16:12] VITALS: BP 127/62
[2018-06-14] MEDS: LORazepam 2 MG TABLET PO PRN (16:30)
[2018-06-14] MEDS: QUEtiapine FUMARATE 200 MG TABLET PO SCH (20:36)
[2018-06-15 00:52] VITALS: BP 105/79
[2018-06-15 08:12] VITALS: BP 109/83
[2018-06-15] MEDS: QUEtiapine FUMARATE 100 MG TABLET PO SCH (08:21)
[2018-06-15] MEDS: CHOLECALCIFEROL (VIT D3) 1,000 UNITS TABLET PO SCH (08:21)
[2018-06-15] MEDS: MULTIVITAMINS WITH MINERALS, THERAPEUTIC TABLET PO SCH (08:21)
[2018-06-15] MEDS: LORazepam 2 MG TABLET PO PRN (12:38)
[2018-06-15 17:27] VITALS: BP 106/76
[2018-06-15] MEDS: QUEtiapine FUMARATE 200 MG TABLET PO SCH (20:37)
[2018-06-16 00:04] VITALS: BP 134/81
[2018-06-16] MEDS: LORazepam 2 MG TABLET PO PRN ×2 (00:09→17:26)
[2018-06-16] MEDS: ZOLPIDEM TARTRATE 10 MG TABLET PO PRN (00:09)
[2018-06-16 08:13] VITALS: BP 113/68
[2018-06-16] MEDS: MULTIVITAMINS WITH MINERALS, THERAPEUTIC TABLET PO SCH (08:49)
[2018-06-16] MEDS: QUEtiapine FUMARATE 100 MG TABLET PO SCH (08:49)
[2018-06-16] MEDS: CHOLECALCIFEROL (VIT D3) 1,000 UNITS TABLET PO SCH (08:49)
[2018-06-16] MEDS: BuPROPion HCL 100 MG SR TABLET PO SCH (13:06)
[2018-06-16 16:09] VITALS: BP 117/75
[2018-06-16] MEDS: QUEtiapine FUMARATE 200 MG TABLET PO SCH (20:04)
[2018-06-17] MEDS: ZOLPIDEM TARTRATE 10 MG TABLET PO PRN ×2 (00:10→20:42)
[2018-06-17 02:45] VITALS: BP 106/63
[2018-06-17] MEDS: LORazepam 2 MG TABLET PO PRN ×3 (03:49→16:20)
[2018-06-17 08:31] VITALS: BP 113/62
[2018-06-17] MEDS: BuPROPion HCL 100 MG SR TABLET PO SCH (08:32)
[2018-06-17] MEDS: QUEtiapine FUMARATE 100 MG TABLET PO SCH (08:32)
[2018-06-17] MEDS: MULTIVITAMINS WITH MINERALS, THERAPEUTIC TABLET PO SCH (08:32)
[2018-06-17] MEDS: CHOLECALCIFEROL (VIT D3) 1,000 UNITS TABLET PO SCH (08:32)
[2018-06-17 16:06] VITALS: BP 124/80
[2018-06-17] MEDS: QUEtiapine FUMARATE 200 MG TABLET PO SCH (20:22)
[2018-06-18 00:34] VITALS: BP 114/77
[2018-06-18 08:32] VITALS: BP 116/67
[2018-06-18] MEDS: BuPROPion HCL 100 MG SR TABLET PO SCH (08:46)
[2018-06-18] MEDS: CHOLECALCIFEROL (VIT D3) 1,000 UNITS TABLET PO SCH (08:47)
[2018-06-18] MEDS: MULTIVITAMINS WITH MINERALS, THERAPEUTIC TABLET PO SCH (08:47)
[2018-06-18] MEDS: QUEtiapine FUMARATE 100 MG TABLET PO SCH (08:47)
[2018-06-18] MEDS: LORazepam 2 MG TABLET PO PRN ×3 (10:30→20:13)
[2018-06-18 16:07] VITALS: BP 109/60
[2018-06-18] MEDS: QUEtiapine FUMARATE 200 MG TABLET PO SCH (20:13)
[2018-06-19 00:28] VITALS: BP 100/62
[2018-06-19 04:40] VITALS: BP 110/82
[2018-06-19] MEDS: LORazepam 2 MG TABLET PO PRN ×2 (04:43→15:41)
[2018-06-19 08:05] VITALS: BP 105/67
[2018-06-19] MEDS: MULTIVITAMINS WITH MINERALS, THERAPEUTIC TABLET PO SCH (08:31)
[2018-06-19] MEDS: QUEtiapine FUMARATE 100 MG TABLET PO SCH (08:31)
[2018-06-19] MEDS: CHOLECALCIFEROL (VIT D3) 1,000 UNITS TABLET PO SCH (08:31)
[2018-06-19] MEDS: BuPROPion HCL 100 MG SR TABLET PO SCH (08:31)
[2018-06-19 16:03] VITALS: BP 133/79
[2018-06-19] MEDS: QUEtiapine FUMARATE 200 MG TABLET PO SCH (20:07)
[2018-06-19] MEDS: ZOLPIDEM TARTRATE 10 MG TABLET PO PRN (21:15)
[2018-06-20 00:20] VITALS: BP 110/68
[2018-06-20] MEDS: LORazepam 2 MG TABLET PO PRN ×3 (00:21→20:11)
[2018-06-20] MEDS: CHOLECALCIFEROL (VIT D3) 1,000 UNITS TABLET PO SCH (08:26)
[2018-06-20] MEDS: BuPROPion HCL 100 MG SR TABLET PO SCH (08:26)
[2018-06-20] MEDS: QUEtiapine FUMARATE 100 MG TABLET PO SCH (08:26)
[2018-06-20] MEDS: MULTIVITAMINS WITH MINERALS, THERAPEUTIC TABLET PO SCH (08:26)
[2018-06-20 08:46] VITALS: BP 103/73
[2018-06-20 16:33] VITALS: BP 123/68
[2018-06-20] MEDS: QUEtiapine FUMARATE 200 MG TABLET PO SCH (20:01)
[2018-06-21 01:33] VITALS: BP 121/73
[2018-06-21] MEDS: BuPROPion HCL 100 MG SR TABLET PO SCH (08:07)
[2018-06-21] MEDS: CHOLECALCIFEROL (VIT D3) 1,000 UNITS TABLET PO SCH (08:07)
[2018-06-21] MEDS: MULTIVITAMINS WITH MINERALS, THERAPEUTIC TABLET PO SCH (08:07)
[2018-06-21] MEDS: QUEtiapine FUMARATE 100 MG TABLET PO SCH (08:07)
[2018-06-21 08:23] VITALS: BP 124/60
[2018-06-21] MEDS: LORazepam 2 MG TABLET PO PRN ×2 (10:06→16:45)
[2018-06-21 16:09] VITALS: BP 108/86
[2018-06-21] MEDS: QUEtiapine FUMARATE 100 MG TABLET PO PRN (16:45)
[2018-06-21] MEDS: QUEtiapine FUMARATE 200 MG TABLET PO SCH (20:16)
[2018-06-22 02:42] VITALS: BP 123/75
[2018-06-22] MEDS: LORazepam 2 MG TABLET PO PRN ×3 (02:42→18:40)
[2018-06-22] MEDS: ZOLPIDEM TARTRATE 10 MG TABLET PO PRN (02:42)
[2018-06-22 08:09] VITALS: BP 139/78
[2018-06-22] MEDS: BuPROPion HCL 100 MG SR TABLET PO SCH (08:32)
[2018-06-22] MEDS: CHOLECALCIFEROL (VIT D3) 1,000 UNITS TABLET PO SCH (08:32)
[2018-06-22] MEDS: QUEtiapine FUMARATE 100 MG TABLET PO SCH (08:32)
[2018-06-22] MEDS: MULTIVITAMINS WITH MINERALS, THERAPEUTIC TABLET PO SCH (08:32)
[2018-06-22 16:30] VITALS: BP 102/69
[2018-06-22] MEDS: QUEtiapine FUMARATE 200 MG TABLET PO SCH (20:15)
[2018-06-23 01:10] VITALS: BP 105/81
[2018-06-23] MEDS: CHOLECALCIFEROL (VIT D3) 1,000 UNITS TABLET PO SCH (08:17)
[2018-06-23] MEDS: BuPROPion HCL 100 MG SR TABLET PO SCH (08:17)
[2018-06-23] MEDS: QUEtiapine FUMARATE 100 MG TABLET PO SCH (08:18)
[2018-06-23] MEDS: MULTIVITAMINS WITH MINERALS, THERAPEUTIC TABLET PO SCH (08:18)
[2018-06-23 08:32] VITALS: BP 105/70
[2018-06-23] MEDS ORDERED: QUET200T PO (11:39)
[2018-06-23] MEDS ORDERED: BUPR100SR PO (11:39)
[2018-06-23] MEDS ORDERED: QUET100T PO (11:39)
== END 2018-06-23 13:33 | disposition home or self-care (01) | DRG 885 ==
LOC: B2X 00:50
PROVIDERS: ADMIT Psychiatry & Neurology Child & Adolescent Psychiatry; ATTEND Psychiatry & Neurology Child & Adolescent Psychiatry
DX: F25.0 Schizoaffective disorder, bipolar type (principal); R45.851 Suicidal ideations; F19.20 Other psychoactive substance dependence, uncomplicated; E55.9 Vitamin D deficiency, unspecified; F10.10 Alcohol abuse, uncomplicated; F41.9 Anxiety disorder, unspecified; G44.209 Tension-type headache, unspecified, not intractable; F12.10 Cannabis abuse, uncomplicated; F15.10 Other stimulant abuse, uncomplicated; G47.00 Insomnia, unspecified; Z59.0 Homelessness; Z81.8 Family history of other mental and behavioral disorders; Z28.21 Immunization not carried out because of patient refusal; Z88.0 Allergy status to penicillin; Z88.8 Allergy status to other drugs, medicaments and biological substances; Z79.899 Other long term (current) drug therapy; Z71.41 Alcohol abuse counseling and surveillance of alcoholic; Z71.51 Drug abuse counseling and surveillance of drug abuser
CPT/HCPCS: 80307; 83036; 84443; Q0162

== ENCOUNTER 2018-08-19 14:04 | Inpatient (IN) | payer MEDICARE, MEDICAID ==
[~2018-08-19] VITALS: Ht 167.6 cm; Wt 75.3 kg
[~2018-08-19 14:04] MED LIST changes: +BUPR100SR PO; -NYST15PO3 TP; +QUET100T PO; +QUET200T PO; -QUET300T18 PO; -QUET300T2 PO; -VITAD400 PO
[2018-08-19] MEDS ORDERED: ZOLPIDEM TARTRATE 10 MG TABLET PO PRN (19:00)
[2018-08-19 19:03] VITALS: BP 127/58
[2018-08-19 19:34] VITALS: BP 116/75
[2018-08-19] MEDS ORDERED: NICOTINE 14 MG/24 HOUR PATCH TD PRN (20:15)
[2018-08-19] MEDS ORDERED: ALBUTEROL SULFATE HFA 90 MCG/PUFF 8 GM INHALER IH PRN (20:15)
[2018-08-19] MEDS ORDERED: MAGNESIUM HYDROXIDE SUSPENSION 30 ML UDCUP PO PRN (20:15)
[2018-08-19] MEDS ORDERED: ONDANSETRON HCL 4 MG TABLET PO PRN (20:15)
[2018-08-19] MEDS ORDERED: LOPERAMIDE HCL 2 MG CAPSULE PO PRN (20:15)
[2018-08-19] MEDS ORDERED: ACETAMINOPHEN 325 MG TABLET PO PRN (20:15)
[2018-08-19] MEDS ORDERED: CloNIDine HCL 0.1 MG TABLET PO PRN (20:15)
[2018-08-19] MEDS ORDERED: DOCUSATE SODIUM 100 MG CAPSULE PO PRN (20:15)
[2018-08-19] MEDS ORDERED: MAG HYDROX/AL HYDROX/SIMETH ES 30 ML SUSPENSION UDCUP PO PRN (20:15)
[2018-08-19] MEDS ORDERED: PETROLATUM,WHITE 71 GM JELLY TP PRN (20:15)
[2018-08-19] MEDS ORDERED: IBUPROFEN 400 MG TABLET PO PRN (20:15)
[2018-08-19] MEDS ORDERED: GuaiFENesin/D-METHORPHAN [SUGAR-FREE] 200-20MG/10 ML SYRUP UDCUP PO PRN (20:15)
[2018-08-19] MEDS: LORazepam 2 MG TABLET PO PRN (21:16)
[2018-08-20 06:15] VITALS: BP 107/80
[2018-08-20 08:05] VITALS: BP 111/64
[2018-08-20] MEDS: LORazepam 2 MG TABLET PO PRN ×2 (12:25→20:05)
[2018-08-20 16:03] VITALS: BP 115/67
[2018-08-20] MEDS: QUEtiapine FUMARATE 300 MG TABLET PO SCH (20:06)
[2018-08-21 04:47] VITALS: BP 120/81
[2018-08-21 08:03] VITALS: BP 117/64
[2018-08-21 08:26] LABS: AMPHET/METH SCREEN,URINE NEGATIVE (NEGATIVE); BARBITURATE SCREEN, URINE NEGATIVE (NEGATIVE); BENZODIAZEPINES SCREEN,URINE NEGATIVE (NEGATIVE); CANNABINOID SCREEN,URINE POSITIVE (NEGATIVE); COCAINE SCREEN,URINE NEGATIVE (NEGATIVE); METHADONE SCREEN, URINE NEGATIVE (NEGATIVE); OPIATE SCREEN,URINE POSITIVE (NEGATIVE); PHENCYCLIDINE SCREEN,URINE NEGATIVE (NEGATIVE)
[2018-08-21 09:18] LABS: BILIRUBIN,URINE NEGATIVE (NEGATIVE); GLUCOSE, URINE (UA) NEGATIVE (NEGATIVE); KETONES,URINE NEGATIVE (NEGATIVE); LEUKOCYTE ESTERASE ,URINE NEGATIVE (NEGATIVE); NITRATE,URINE NEGATIVE (NEGATIVE); OCCULT BLOOD,URINE NEGATIVE (NEGATIVE); PH,URINE 7.5 (5.0-8.0); PROTEIN,URINE NEGATIVE (NEGATIVE)
[2018-08-21 09:22] LABS: APPEARANCE,URINE CLEAR (CLEAR)
[2018-08-21] MEDS: LORazepam 2 MG TABLET PO PRN (16:01)
[2018-08-21 16:02] VITALS: BP 115/64
[2018-08-21] MEDS: QUEtiapine FUMARATE 100 MG TABLET PO PRN (17:12)
[2018-08-21] MEDS: QUEtiapine FUMARATE 300 MG TABLET PO SCH (20:31)
[2018-08-22 01:25] VITALS: BP 120/81
[2018-08-22 08:12] LABS: BASOPHILS % (AUTO) 0.5 % (0.0-2.0); EOSINOPHILS % (AUTO) 5.3 % (1.0-6.0); HEMOGLOBIN 15.1 g/dL (13.5-17.5); LYMPHOCYTES # (AUTO) 2.5 K/uL (1.0-4.8); MEAN CORPUSCULAR HEMOGLOBIN 30.8 pg (26.0-34.0); MEAN CORPUSCULAR HGB CONC 34.4 G/dL (31.0-37.0); MEAN CORPUSCULAR VOLUME 90 fL (80-100); MONOCYTES # (AUTO) 0.8 K/uL (0.1-1.0); MONOCYTES % (AUTO) 13.7 % (2.0-9.0); NEUTROPHILS # (AUTO) 2.3 K/uL (1.8-7.7); NEUTROPHILS % (AUTO) 38.5 % (40.0-70.0); PLATELET COUNT (AUTO) 232 K/uL (150-450); RED BLOOD CELL COUNT(AUTO) 4.91 MIL/uL (4.50-5.90); RED CELL DISTRIBUTION WIDTH 12.9 % (11.5-14.5)
[2018-08-22 08:41] VITALS: BP 115/61
[2018-08-22 08:58] LABS: ALANINE AMINOTRANSFERASE 28 U/L (12-78); ALBUMIN 3.3 g/dL (3.4-5.0); ALKALINE PHOSPHATASE 37 U/L (46-116); ANION GAP 7 mmol/L (8-16); ASPARTATE AMINOTRANSFERASE 19 U/L (15-37); BILIRUBIN,TOTAL 0.3 mg/dL (0.1-1.0); CALCIUM, TOTAL 8.6 mg/dL (8.8-10.5); CARBON DIOXIDE 28 mmol/L (22-29); CHLORIDE 105 mmol/L (98-107); CHOL/HDL RATIO 3.1 (4.2-7.3); CHOLESTEROL 142 mg/dL (131-200); CREATININE 0.69 mg/dL (0.60-1.30); GLOMERULAR FILTR. RATE CALC > 60 mL/min (>60); GLUCOSE,RANDOM 78 mg/dL (70-110); HDL CHOLESTEROL 46 mg/dL (40-60); LDL CHOL (CALC.) 87 mg/dL (0-130); POTASSIUM 4.2 mmol/L (3.5-5.1); SODIUM SERUM 140 mmol/L (136-145); THYROID STIMULATING HORMONE 0.55 uIU/mL (0.36-3.74); TOTAL PROTEIN, SERUM 6.5 g/dL (6.4-8.2); TRIGLYCERIDES 47 mg/dL (15-150); UREA NITROGEN, BLOOD 19 mg/dL (7-18)
[2018-08-22] MEDS: LORazepam 2 MG TABLET PO PRN ×2 (10:24→16:41)
[2018-08-22] MEDS: QUEtiapine FUMARATE 100 MG TABLET PO PRN (10:24)
[2018-08-22 16:03] VITALS: BP 100/70
[2018-08-22 16:44] VITALS: BP 111/72
[2018-08-22] MEDS: QUEtiapine FUMARATE 300 MG TABLET PO SCH (20:30)
[2018-08-23] MEDS: LORazepam 2 MG TABLET PO PRN ×2 (00:40→13:11)
[2018-08-23 05:56] VITALS: BP 108/62
[2018-08-23 08:17] VITALS: BP 120/76
[2018-08-23] MEDS: QUEtiapine FUMARATE 100 MG TABLET PO PRN (16:00)
[2018-08-23 16:02] VITALS: BP 109/75
[2018-08-23] MEDS: QUEtiapine FUMARATE 300 MG TABLET PO SCH (20:31)
[2018-08-24 01:57] VITALS: BP 110/68
[2018-08-24] MEDS: LORazepam 2 MG TABLET PO PRN ×3 (05:08→20:15)
[2018-08-24 09:00] VITALS: BP 115/65
[2018-08-24] MEDS: QUEtiapine FUMARATE 100 MG TABLET PO PRN (13:38)
[2018-08-24 16:20] VITALS: BP 113/67
[2018-08-24] MEDS: QUEtiapine FUMARATE 300 MG TABLET PO SCH (20:04)
[2018-08-25 00:22] VITALS: BP 110/68
[2018-08-25 08:24] VITALS: BP 113/61
[2018-08-25] MEDS ORDERED: QUET300T2 PO (09:56)
[2018-08-25] MEDS ORDERED: QUET300T18 PO (10:33)
== END 2018-08-25 11:40 | disposition home or self-care (01) | DRG 885 ==
LOC: B2X 19:02
DX: F25.1 Schizoaffective disorder, depressive type (principal); R45.851 Suicidal ideations; F41.9 Anxiety disorder, unspecified; G47.00 Insomnia, unspecified; F17.200 Nicotine dependence, unspecified, uncomplicated; F12.10 Cannabis abuse, uncomplicated; F11.10 Opioid abuse, uncomplicated; F15.10 Other stimulant abuse, uncomplicated; E55.9 Vitamin D deficiency, unspecified; Z79.899 Other long term (current) drug therapy; Z91.5 Personal history of self-harm; Z88.0 Allergy status to penicillin; Z88.8 Allergy status to other drugs, medicaments and biological substances; Z71.6 Tobacco abuse counseling; Z71.51 Drug abuse counseling and surveillance of drug abuser; Z23 Encounter for immunization
CPT/HCPCS: 80307; 84443; 90686

== ENCOUNTER 2018-09-02 01:16 | Inpatient (IN) | payer MEDICARE, MEDICAID ==
[~2018-09-02] VITALS: Ht 167.6 cm; Wt 74.9 kg
[~2018-09-02 01:16] MED LIST changes: -BUPR100SR PO; -QUET100T PO; -QUET200T PO; +QUET300T18 PO; +QUET300T2 PO
[2018-09-02] MEDS ORDERED: HALOPERIDOL 5 MG TABLET PO PRN (01:30)
[2018-09-02 03:47] VITALS: BP 120/81
[2018-09-02] MEDS: LORazepam 2 MG TABLET PO PRN (12:14)
[2018-09-02 16:27] VITALS: BP 100/68
[2018-09-02] MEDS: QUEtiapine FUMARATE 300 MG TABLET PO SCH (20:37)
[2018-09-03 00:27] VITALS: BP 102/60
[2018-09-03 08:35] VITALS: BP 102/69
[2018-09-03 16:05] VITALS: BP 108/63
[2018-09-03] MEDS: LORazepam 2 MG TABLET PO PRN (16:27)
[2018-09-03] MEDS: QUEtiapine FUMARATE 300 MG TABLET PO SCH (20:10)
[2018-09-04 01:06] VITALS: BP 102/63
[2018-09-04 07:37] LABS: AMPHET/METH SCREEN,URINE POSITIVE (NEGATIVE); BARBITURATE SCREEN, URINE NEGATIVE (NEGATIVE); BENZODIAZEPINES SCREEN,URINE NEGATIVE (NEGATIVE); CANNABINOID SCREEN,URINE POSITIVE (NEGATIVE); COCAINE SCREEN,URINE NEGATIVE (NEGATIVE); METHADONE SCREEN, URINE NEGATIVE (NEGATIVE); OPIATE SCREEN,URINE NEGATIVE (NEGATIVE)
[2018-09-04 07:40] LABS: PHENCYCLIDINE SCREEN,URINE NEGATIVE (NEGATIVE)
[2018-09-04 07:43] LABS: APPEARANCE,URINE CLEAR (CLEAR); BILIRUBIN,URINE NEGATIVE (NEGATIVE); GLUCOSE, URINE (UA) NEGATIVE (NEGATIVE); KETONES,URINE NEGATIVE (NEGATIVE); LEUKOCYTE ESTERASE ,URINE NEGATIVE (NEGATIVE); NITRATE,URINE NEGATIVE (NEGATIVE); OCCULT BLOOD,URINE NEGATIVE (NEGATIVE); PROTEIN,URINE NEGATIVE (NEGATIVE); UROBILINOGEN,URINE 0.2 mg/dL (<=1.0)
[2018-09-04 08:06] VITALS: BP 109/64
[2018-09-04] MEDS: LORazepam 2 MG TABLET PO PRN (14:09)
[2018-09-04 16:14] VITALS: BP 101/63
[2018-09-04] MEDS: QUEtiapine FUMARATE 300 MG TABLET PO SCH (20:06)
[2018-09-05 01:19] VITALS: BP 102/63
[2018-09-05] MEDS: LORazepam 2 MG TABLET PO PRN ×3 (02:29→17:27)
[2018-09-05 07:49] LABS: BASOPHILS % (AUTO) 0.7 % (0.0-2.0); EOSINOPHILS % (AUTO) 7.1 % (1.0-6.0); HEMATOCRIT 44.7 % (41-53); LYMPHOCYTES # (AUTO) 2.6 K/uL (1.0-4.8); LYMPHOCYTES % (AUTO) 39.1 % (22.0-44.0); MEAN CORPUSCULAR HEMOGLOBIN 30.1 pg (26.0-34.0); MEAN CORPUSCULAR HGB CONC 33.6 G/dL (31.0-37.0); MEAN CORPUSCULAR VOLUME 90 fL (80-100); MONOCYTES # (AUTO) 0.5 K/uL (0.1-1.0); MONOCYTES % (AUTO) 7.8 % (2.0-9.0); NEUTROPHILS # (AUTO) 3.1 K/uL (1.8-7.7); NEUTROPHILS % (AUTO) 45.3 % (40.0-70.0); PLATELET COUNT (AUTO) 272 K/uL (150-450); RED CELL DISTRIBUTION WIDTH 13.5 % (11.5-14.5)
[2018-09-05 07:57] LABS: HEMOGLOBIN A1C 5.3 % (4.5-6.2)
[2018-09-05 08:39] LABS: ALANINE AMINOTRANSFERASE 19 U/L (12-78); ALBUMIN 3.1 g/dL (3.4-5.0); ALKALINE PHOSPHATASE 35 U/L (46-116); ANION GAP 8 mmol/L (8-16); BILIRUBIN,TOTAL 0.2 mg/dL (0.1-1.0); CALCIUM, TOTAL 8.5 mg/dL (8.8-10.5); CARBON DIOXIDE 29 mmol/L (22-29); CHLORIDE 105 mmol/L (98-107); CHOL/HDL RATIO 3.1 (4.2-7.3); CHOLESTEROL 131 mg/dL (131-200); CREATININE 0.77 mg/dL (0.60-1.30); FREE T4 (FREE THYROXINE) 0.96 ng/dL (0.76-1.46); GLOMERULAR FILTR. RATE CALC > 60 mL/min (>60); GLUCOSE,RANDOM 68 mg/dL (70-110); HDL CHOLESTEROL 42 mg/dL (40-60); LDL CHOL (CALC.) 68 mg/dL (0-130); POTASSIUM 4.1 mmol/L (3.5-5.1); SODIUM SERUM 142 mmol/L (136-145); THYROID STIMULATING HORMONE 0.73 uIU/mL (0.36-3.74); TOTAL PROTEIN, SERUM 6.2 g/dL (6.4-8.2); TRIGLYCERIDES 103 mg/dL (15-150); UREA NITROGEN, BLOOD 20 mg/dL (7-18)
[2018-09-05 08:50] LABS: ASPARTATE AMINOTRANSFERASE 13 U/L (15-37)
[2018-09-05 16:09] VITALS: BP 112/73
[2018-09-05] MEDS: QUEtiapine FUMARATE 300 MG TABLET PO SCH (20:02)
[2018-09-06] VITALS: BP 101/64
[2018-09-06 08:18] VITALS: BP 136/73
[2018-09-06] MEDS: LORazepam 2 MG TABLET PO PRN ×2 (10:19→17:23)
[2018-09-06 16:03] VITALS: BP 108/75
[2018-09-06] MEDS: QUEtiapine FUMARATE 300 MG TABLET PO SCH (20:17)
[2018-09-07 00:04] VITALS: BP 98/61
[2018-09-07 08:35] VITALS: BP 115/70
[2018-09-07] MEDS: LORazepam 2 MG TABLET PO PRN ×2 (09:11→17:38)
[2018-09-07] MEDS: NICOTINE 21 MG/24 HOUR PATCH TD SCH (10:07)
[2018-09-07 16:04] VITALS: BP 113/72
[2018-09-07] MEDS: QUEtiapine FUMARATE 300 MG TABLET PO SCH (21:06)
[2018-09-07] MEDS: ZOLPIDEM TARTRATE 10 MG TABLET PO PRN (21:40)
[2018-09-08 05:29] VITALS: BP 116/80
[2018-09-08 08:24] VITALS: BP 108/66
[2018-09-08] MEDS: NICOTINE 21 MG/24 HOUR PATCH TD SCH ×2 (09:00→10:04)
[2018-09-08 16:11] VITALS: BP 117/73
[2018-09-08] MEDS: MAGNESIUM HYDROXIDE SUSPENSION 30 ML UDCUP PO PRN (18:14)
[2018-09-08] MEDS: QUEtiapine FUMARATE 300 MG TABLET PO SCH (20:01)
[2018-09-09 00:56] VITALS: BP 100/60
[2018-09-09 07:48] VITALS: BP 100/55
[2018-09-09 09:00] VITALS: BP 100/55
[2018-09-09] MEDS: NICOTINE 21 MG/24 HOUR PATCH TD SCH (09:56)
[2018-09-09] MEDS: PALIPERIDONE 3 MG ER TABLET PO SCH ×2 (12:30→20:03)
[2018-09-09 16:06] VITALS: BP 121/77
[2018-09-09] MEDS: BusPIRone HCL 5 MG TABLET PO SCH (16:24)
[2018-09-09] MEDS: QUEtiapine FUMARATE 300 MG TABLET PO SCH (20:03)
[2018-09-10 01:53] VITALS: BP 102/63
[2018-09-10] MEDS: BusPIRone HCL 5 MG TABLET PO SCH ×2 (08:09→16:29)
[2018-09-10] MEDS: NICOTINE 21 MG/24 HOUR PATCH TD SCH (08:09)
[2018-09-10] MEDS: PALIPERIDONE 3 MG ER TABLET PO SCH ×2 (08:09→20:30)
[2018-09-10 08:10] VITALS: BP 103/57
[2018-09-10 16:14] VITALS: BP 100/65
[2018-09-10] MEDS: QUEtiapine FUMARATE 300 MG TABLET PO SCH (20:30)
[2018-09-10] MEDS: ZOLPIDEM TARTRATE 10 MG TABLET PO PRN (22:05)
[2018-09-11 05:25] VITALS: BP 106/70
[2018-09-11 08:02] VITALS: BP 116/72
[2018-09-11] MEDS: PALIPERIDONE 3 MG ER TABLET PO SCH ×2 (08:14→20:34)
[2018-09-11] MEDS: BusPIRone HCL 5 MG TABLET PO SCH ×2 (08:14→16:29)
[2018-09-11] MEDS: NICOTINE 21 MG/24 HOUR PATCH TD SCH (08:45)
[2018-09-11 16:11] VITALS: BP 124/83
[2018-09-11] MEDS: MAGNESIUM HYDROXIDE SUSPENSION 30 ML UDCUP PO PRN (19:04)
[2018-09-11] MEDS: QUEtiapine FUMARATE 300 MG TABLET PO SCH (20:34)
[2018-09-11] MEDS: ZOLPIDEM TARTRATE 10 MG TABLET PO PRN (21:13)
[2018-09-12 00:13] VITALS: BP 120/78
[2018-09-12 08:11] VITALS: BP 116/61
[2018-09-12] MEDS ORDERED: PALIPERIDONE PALMITATE 234 MG/1.5 ML SYRINGE IM ONE (09:00)
[2018-09-12] MEDS: PALIPERIDONE 3 MG ER TABLET PO SCH ×2 (09:08→20:21)
[2018-09-12] MEDS: BusPIRone HCL 5 MG TABLET PO SCH ×2 (09:08→16:02)
[2018-09-12] MEDS: NICOTINE 21 MG/24 HOUR PATCH TD SCH (09:23)
[2018-09-12 16:00] VITALS: BP 133/75
[2018-09-12] MEDS: MAGNESIUM HYDROXIDE SUSPENSION 30 ML UDCUP PO PRN (18:08)
[2018-09-12] MEDS: QUEtiapine FUMARATE 200 MG TABLET PO SCH (20:21)
[2018-09-12] MEDS: ZOLPIDEM TARTRATE 10 MG TABLET PO PRN (20:21)
[2018-09-13 00:59] VITALS: BP 106/62
[2018-09-13 07:33] VITALS: BP 109/64
[2018-09-13] MEDS: BusPIRone HCL 5 MG TABLET PO SCH ×2 (08:03→16:31)
[2018-09-13] MEDS: PALIPERIDONE 3 MG ER TABLET PO SCH ×2 (08:03→20:39)
[2018-09-13] MEDS: NICOTINE 21 MG/24 HOUR PATCH TD SCH (08:20)
[2018-09-13 09:03] VITALS: BP 109/64
[2018-09-13 16:05] VITALS: BP 105/67
[2018-09-13] MEDS: ACETAMINOPHEN 325 MG TABLET PO PRN (20:10)
[2018-09-13] MEDS: QUEtiapine FUMARATE 200 MG TABLET PO SCH (20:39)
[2018-09-14 01:37] VITALS: BP 128/78
[2018-09-14] MEDS: PALIPERIDONE 3 MG ER TABLET PO SCH ×2 (08:06→21:08)
[2018-09-14] MEDS: NICOTINE 21 MG/24 HOUR PATCH TD SCH (08:06)
[2018-09-14] MEDS: BusPIRone HCL 5 MG TABLET PO SCH ×2 (08:06→16:52)
[2018-09-14 08:08] VITALS: BP 108/68
[2018-09-14 16:22] VITALS: BP 121/73
[2018-09-14] MEDS: LORazepam 2 MG TABLET PO PRN (20:57)
[2018-09-14] MEDS: QUEtiapine FUMARATE 200 MG TABLET PO SCH (21:09)
[2018-09-14] MEDS: ZOLPIDEM TARTRATE 10 MG TABLET PO PRN (21:52)
[2018-09-15 01:05] VITALS: BP 103/63
[2018-09-15] MEDS: BusPIRone HCL 5 MG TABLET PO SCH ×2 (08:02→16:34)
[2018-09-15] MEDS: PALIPERIDONE 3 MG ER TABLET PO SCH ×2 (08:02→20:34)
[2018-09-15] MEDS: NICOTINE 21 MG/24 HOUR PATCH TD SCH ×2 (08:03→10:53)
[2018-09-15 08:05] VITALS: BP 107/73
[2018-09-15 12:51] VITALS: BP 110/72
[2018-09-15] MEDS: ACETAMINOPHEN 325 MG TABLET PO PRN (12:51)
[2018-09-15 16:12] VITALS: BP 123/71
[2018-09-15] MEDS: QUEtiapine FUMARATE 200 MG TABLET PO SCH (20:34)
[2018-09-16] MEDS: ZOLPIDEM TARTRATE 10 MG TABLET PO PRN (00:25)
[2018-09-16] MEDS ORDERED: PALI234D IM ×2 (03:06→04:39)
[2018-09-16] MEDS ORDERED: BUSP5TAB20 PO ×2 (03:06→04:39)
[2018-09-16] MEDS ORDERED: PALI3 PO ×3 (03:06→04:39)
[2018-09-16 03:16] VITALS: BP 120/68
[2018-09-16] MEDS ORDERED: PALIPERIDONE PALMITATE 156 MG/ML SYRINGE IM ONE (09:00)
== END 2018-09-16 07:30 | disposition home or self-care (01) | DRG 885 ==
LOC: B2X 01:58
DX: F25.1 Schizoaffective disorder, depressive type (principal); R45.851 Suicidal ideations; F12.90 Cannabis use, unspecified, uncomplicated; F15.90 Other stimulant use, unspecified, uncomplicated; F32.9 Major depressive disorder, single episode, unspecified; Z59.0 Homelessness; Z79.899 Other long term (current) drug therapy; Z88.9 Allergy status to unspecified drugs, medicaments and biological substances; Z91.5 Personal history of self-harm
CPT/HCPCS: 80307; 83036; 84439; 84443; 87081; G0480